=== PATIENT | male | born 1955 | race Caucasian/White ===

== ENCOUNTER → 2021-05-23 | Outpatient (CLI) | payer BC, MEDICARE | LOC: M RAD 08:47 | PROVIDERS: ATTEND Nurse Practitioner | DX: Z12.2 Encounter for screening for malignant neoplasm of respiratory organs (principal); F17.211 Nicotine dependence, cigarettes, in remission ==

== ENCOUNTER → 2022-05-27 | Outpatient (CLI) | payer MEDICARE | LOC: M RAD 14:15 | PROVIDERS: ATTEND Nurse Practitioner | DX: Z12.2 Encounter for screening for malignant neoplasm of respiratory organs (principal); F17.211 Nicotine dependence, cigarettes, in remission; J47.9 Bronchiectasis, uncomplicated ==

== ENCOUNTER → 2023-06-25 | Outpatient (CLI) | payer MEDICARE | LOC: M RAD 13:44 | PROVIDERS: ATTEND Nurse Practitioner | DX: Z87.891 Personal history of nicotine dependence (principal) ==

== ENCOUNTER 2024-01-20 08:34 | Day surgery (SDC) | payer MEDICARE ==
[~2024-01-20] VITALS: Ht 172.7 cm; Wt 73.8 kg
[~2024-01-20 08:34] MED LIST: AMLO1TAB24 PO; BAYE81TA10 PO; CARV12.5 PO; HYDR12.55 PO; LISI40TA4 PO; ROSU20TA86 PO; TAMS1CAP17 PO; fentaNYL 100 MCG/2 ML INJECTION As Ordered ONE
[2024-01-20] MEDS: OFLOXACIN 0.3 % (OCUFLOX) OPTH SOL 5ML OD ONE (09:20)
[2024-01-20] MEDS: LIDOCAINE 3.5 % 1ML OPHTH TOPICAL GEL OU ONE (09:30)
[2024-01-20] MEDS: ATROPINE SULFATE 1% OPHTH SOLN 2ML BTL OD SCH (09:49)
[2024-01-20] MEDS: TROPICAMIDE 1% OPHTH SOLN 15ML OD SCH (09:49)
[2024-01-20] MEDS: PHENYLEPHRINE 2.5% OPHTH SOL 2ML OD SCH (09:49)
[2024-01-20] MEDS: LIDOCAINE 1% SDV 5ML VIAL As Ordered ONE (10:15)
[2024-01-20] MEDS: CEFUROXIME 1MG/0.1ML INTRACAMERAL INJ As Ordered ONE (10:15)
[2024-01-20] MEDS: BSS IRRIG/VANCO(10MG)/TOBRA(5MG)/EPINEPH(1:1000-0.5CC)500ML BAG-ORONLY As Ordered ONE (10:15)
[2024-01-20 10:30] VITALS: BP 125/70; TEMP 97.7; O2SAT 95
[2024-01-20] MEDS: PHENYLEPHRINE 10% OPHTH SOL 5ML OD PRN (11:00)
== END 2024-01-20 10:40 | disposition home or self-care (01) ==
LOC: M SDC 08:34
PROVIDERS: ATTEND Ophthalmology
DX: H25.11 Age-related nuclear cataract, right eye (principal); H57.03 Miosis; Z79.899 Other long term (current) drug therapy; Z87.891 Personal history of nicotine dependence
CPT/HCPCS: 66982; J0697; J3010; V2632

== ENCOUNTER → 2025-01-12 | Outpatient (CLI) | payer MEDICARE ==
[~2025-01-12] MED LIST changes: +LISI40TA10 PO; -LISI40TA4 PO; -fentaNYL 100 MCG/2 ML INJECTION As Ordered ONE
== END ==
LOC: M RAD 08:56
PROVIDERS: ATTEND Nurse Practitioner
DX: F17.211 Nicotine dependence, cigarettes, in remission (principal)